=== PATIENT | female | born 1995 | race Caucasian/White ===

== ENCOUNTER 2020-05-20 20:10 | Emergency (ER) | payer OTHER ==
[~2020-05-20] VITALS: Ht 175.3 cm; Wt 58.2 kg
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
[2020-05-20 20:26] VITALS: BP 143/81
[2020-05-20 21:08] LABS: BARBITURATES NEG (NEG); BENZODIAZEPINES NEG (NEG); CANNABINOIDS NEG (NEG); COCAINE NEG (NEG); METHADONE NEG (NEG); OPIATES NEG (NEG); PHENCYCLIDINE NEG (NEG)
[2020-05-20 21:09] LABS: AMPHETAMINE/METHAMPHETAMINE NEG (NEG)
[2020-05-20 21:27] LABS: BACTERIA,URINE FEW /HPF (0-FEW); BILIRUBIN,URINE NEG (NEG); CLARITY,URINE CLEAR; COLOR,URINE YELLOW; GLUCOSE,URINE NEG (NEG); NITRITE,URINE NEG (NEG); RBC,URINE RARE /HPF (0-2); SQUAMOUS EPITHELIAL CELL,UR FEW /LPF; UROBILINOGEN,URINE 0.2 mg/dL (0.2 mg/dL)
== END 2020-05-20 21:27 | disposition home or self-care (01) ==
LOC: ER 20:10
DX: S50.11XA Contusion of right forearm, initial encounter (principal); Y08.89XA Assault by other specified means, initial encounter; Y93.89 Activity, other specified; Y92.89 Other specified places as the place of occurrence of the external cause; Y99.8 Other external cause status
CPT/HCPCS: 36415; 80307; 81001; 81025; 99283

== ENCOUNTER 2020-08-25 20:55 | Emergency (ER) | payer OTHER ==
[~2020-08-25] VITALS: Ht 175.3 cm; Wt 58.5 kg
[2020-08-25 21:09] VITALS: BP 107/72
--- NOTE | 2020-08-25 21:35 | PHYS DOC ---
Past History Past Medical History: No Pertinent History Past Surgical History: No Surgical History Alcohol Use: None General Adult EDM: Chief Complaint: FATIGUE HPI: HPI: Patient is a 25-year-old female presenting with multiple complaints. Patient has mild frontal headache, chills, body aches, mild nonproductive cough. Symptoms started this morning. Patient states she is been very fatigued and sleeping a lot today. Patient is concerned because she has to go to work in the morning. Temperature 99.8 at home. Has not taken anything for symptoms. Has gotten her flu shot this year. Has been around people without masks. Review of Systems: Review of Systems: Constitutional: Fever, chills, fatigue, myalgias Eyes: Denies change in visual acuity HENT: Denies nasal congestion or sore throat. Denies neck rigidity Respiratory: Nonproductive cough, no shortness of breath Cardiovascular: Denies chest pain or edema GI: Denies abdominal pain, nausea, vomiting, bloody stools or diarrhea : Denies dysuria Musculoskeletal: Denies back pain or joint pain Integument: Denies rash Neurologic: Denies headache, focal weakness or sensory changes Endocrine: Denies polyuria or polydipsia Lymphatic: Denies swollen glands Psychiatric: Denies depression or anxiety Allergies: Allergies: Allergies Coded Allergies Type Severity Reaction Last Updated Verified No Known Drug Allergies 05/20/20 No Physical Exam: PE: Constitutional: Well developed, well nourished, no acute distress, non-toxic appearance. [] HENT: Normocephalic, atraumatic, bilateral external ears normal, oropharynx moist, no oral exudates, nose normal. [] Eyes: PERRLA, EOMI, conjunctiva normal, no discharge. [] Neck: Normal range of motion, no tenderness, supple, no stridor. [] Cardiovascular:Heart rate regular rhythm, no murmur [] Lungs & Thorax: Bilateral breath sounds clear to auscultation [] Abdomen: Bowel sounds normal, soft, no tenderness, no masses, no pulsatile masses. [] Skin: Warm, dry, no erythema, no rash. [] Back: No tenderness, no CVA tenderness. [] Extremities: No tenderness, no cyanosis, no clubbing, ROM intact, no edema. [] Neurologic: Alert and oriented X 3, normal motor function, normal sensory function, no focal deficits noted. [] Psychologic: Affect normal, judgement normal, mood normal. [] Current Patient Data: Vital Signs: Vital Signs Date Time Temp Pulse Resp B/P (MAP) Pulse Ox O2 Delivery O2 Flow Rate FiO2 08/25/20 21:09 98.5 90 18 107/72 (84) 98 Room Air EKG: EKG: [] Radiology/Procedures: Radiology/Procedures: [] Heart Score: Risk Factors: Risk Factors: DM, Current or recent (<one month) smoker, HTN, HLP, family history of CAD, obesity. Risk Scores: Score 0 - 3: 2.5% MACE over next 6 weeks - Discharge Home Score 4 - 6: 20.3% MACE over next 6 weeks - Admit for Clinical Observation Score 7 - 10: 72.7% MACE over next 6 weeks - Early Invasive Strategies Course & Med Decision Making: Course & Med Decision Making Well-appearing with stable vital signs. Tested for Covid instructed to self quarantine until test resulted. Ducted on use [id number] medications for her symptoms and return precautions [] Dragon Disclaimer: Dragon Disclaimer: This electronic medical record was generated, in whole or in part, using a voice recognition dictation system. Departure Departure: Impression: Primary Impression: Viral syndrome Disposition: DC HOME SELF CARE/HOMELESS Condition: STABLE Referrals: PCP,UNKNOWN (PCP) Additional Instructions: You have been tested for or diagnosed with COVID-19. It is an infection caused by a new type of coronavirus. COVID-19 will cause cold-like or mild flu symptoms in most. It can cause more severe symptoms like problems breathing in some. There is no treatment for COVID-19. The body will clear the infection over time. Self-care will help to ease discomfort. Steps to Take: Self-Care Rest as needed. Healthy habits may help you feel better. Steps include: Choose healthy foods including fruits and vegetables. Drink water throughout the day. Get plenty of sleep each night. If you smoke, try to quit. It may ease breathing. Avoid alcohol. Keep Others Healthy The virus can spread to others. Droplets are released every time you sneeze or cough. The droplets can get into the mouth, nose, or eyes of people near you and lead to infection. To lower the chances of spreading COVID-19 to others: Stay at home until your doctor has said it is safe to leave. If you tested positive this will mean staying isolated until both of the following are true: At least 7 days have passed since the start of illness. You are free of fever for at least 72 hours without the use of medicine. During this time: - Avoid public areas, events, or transportation. Do not return to work or school until your doctor has said it is safe to do so. - Call ahead if you need to go to a medical center. Let them know you may have COVID-19. It will help them guide you where to go. They may also ask you to wear a facemask when you come to the office. - If you call for emergency medical services, let them know you may have COVID- 19. While at home: - Try to avoid close contact with others. Stay about 6 feet away. - If possible, spend most of your time in a separate room from others. - Use a face mask if you will be in close contact with others such as sharing a room or vehicle. - Have someone wipe down common surfaces in the home. Use household assembly machine tool setter every day on areas like doorknobs, counters, or sinks. - Cough or sneeze into a tissue. Throw the tissue away right after use. If a tissue is not available, cough or sneeze into your elbow. - Wash your hands often. Wash them after sneezing or coughing. Use soap and water and wash for at least 20 seconds. Alcohol based hand globe cleaner can be used if soap and water is not available. - Do not prepare food for others. Avoid sharing personal items like forks, spoons, or toothbrushes. - Avoid close contact with pets while you are sick. There is no evidence of the virus passing to pets. This is a safety step until more is known about this virus. Isolation can be frustrating. Social interaction can help. Keep in touch with friends and family through phone and tech options. You can still interact with others in your home, just keep a safe distance of about 6 feet. Follow-up: Your doctors office will check in with you to see if there are any changes in your health. You may be asked to keep track of symptoms to share with them. They will also let you know when you are clear to be in public again. Problems to Look Out For: Contact your doctor if your recovery is not going as you expect. Get emergency care if you have problems such as: - Trouble breathing - Nonstop chest pain or pressure - Changes in awareness, confusion, or problems waking - Lips or face have bluish color - Worsening of symptoms If you think you have an emergency, call for emergency medical services right away. As taken from [facility] BETY MUNIZ MD Aug 25, 2020 21:35
== END 2020-08-25 21:45 | disposition home or self-care (01) ==
LOC: ER 20:55
DX: B34.9 Viral infection, unspecified (principal); Z20.828 Contact with and (suspected) exposure to other viral communicable diseases
CPT/HCPCS: 99283; C9803; U0003

== ENCOUNTER 2021-10-04 13:03 | Emergency (ER) | payer OTHER ==
[~2021-10-04] VITALS: Ht 175.3 cm; Wt 60.0 kg
[2021-10-04 15:29] VITALS: BP 110/66
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
[2021-10-04] MEDS ORDERED: ONDA4TAB12 PO (16:10)
[2021-10-04 16:22] LABS: INFLUENZA A PATIENT NEGATIVE (NEGATIVE); INFLUENZA B PATIENT NEGATIVE (NEGATIVE)
--- NOTE | 2021-10-04 17:04 | EKG ---
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
== END 2021-10-04 16:15 | disposition home or self-care (01) ==
LOC: ER 13:03
DX: R53.1 Weakness (principal); R11.0 Nausea; R19.7 Diarrhea, unspecified; R63.0 Anorexia; Z20.822 Contact with and (suspected) exposure to COVID-19
CPT/HCPCS: 81025; 87804; 93005; 99284; C9803; U0003